=== PATIENT | female | born 1985 | race Caucasian/White ===

== ENCOUNTER 2016-05-27 13:16 | Emergency (ER) | payer MEDICAID, OTHER ==
[~2016-05-27 13:16] MED LIST: PREN1PAK2 PO
--- NOTE | 2016-05-27 14:03 | PD ---
HPI Chief Complaint Bleeding with intercourse Date Seen: May 27, 2016 Time Seen: 13:50 Travel History International Travel<30 Days: No Contact w/Intl Traveler<30Days: No Known Affected Area: No History of Present Illness HPI 32-year-old 4 para 1 AB 2 with an EDC of September 25 who presents today complaining of vaginal bleeding. The patient states that she had intercourse and noted bright red vaginal bleeding less than a period but more than spotting. She denies any abdominal pain or trauma. She has had minimal cramping. No leakage of fluid. Good movement. No vaginal irritation or discharge. Para: 1 : 4 Miscarriage: 2 : 0 History Past Medical History Medical History: Denies Significant Hx Past Surgical History Narrative Surgical 1, D&C 2 Family History Family History: Negative Social History Alcohol Use: No Tobacco Use: Yes (stopped with ) Substance Abuse: No Allergies-Medications (Allergen,Severity, Reaction): Coded Allergies: No Known Allergies (Verified , 05/09/16) Home Meds Active Scripts W/O Vit A W/ Fe Carbo Pack (Citranatal Dha Pack)27-1 & 250 Mg Pack1 Ea PO DAILY #6 BLISTER Ref 11 30 day supply. Prov:Bea Light 03/08/16 W/O Vit A W/ Fe Carbo (Prenate Mini 18-0.6-0.4-350 mg)1 Cap Cap Sample #2 Prov:Bea Light 03/08/16 Review of Systems Except as stated in HPI: all other systems reviewed are Neg Physical Exam Narrative GENERAL: Well-nourished, well-developed patient. SKIN: Warm and dry. HEAD: Normocephalic and atraumatic. EYES: No scleral icterus. No injection or drainage. ENT: No nasal drainage noted. Mucous membranes pink. Airway patent. NECK: Supple, trachea midline. No JVD. ABDOMEN/GI: Abdomen soft, non-tender, bowel sounds present, no rebound, no guarding Gravid to [26-] weeks size Fundal Height: [-] GENITOURINARY: External Genitalia: intact and normal in appearance BUS glands: [Negative-] Cervix: [Small bleeding spot identified on the squamocolumnar junction-] Dilatation: [-Closed] Effacement: [-Long] Station: [High-] Presentation: [-] Membranes: [intact] Uterine Contractions: [None-] FHT's: Category: [-1] Baseline: [-] Reactive: [Yes-] Variability: [-] Decels: [-] EXTREMITIES: No cyanosis or edema. BACK: Nontender without obvious deformity. No CVA tenderness. NEUROLOGICAL: Awake and alert. Motor and sensory grossly within normal limits. Five out of 5 muscle strength in all muscle groups. Normal speech. MDM Medical Record Reviewed: Yes Narrative Course / MDM Assessment: 26 week intrauterine with postcoital bleeding related to a small cervical capillary site, she is Rh+ Plan: Pelvic rest Follow-up in clinic as scheduled. Diagnosis Diagnosis: Primary Impression: 26 weeks gestation of Additional Impression: Antepartum bleeding, second trimester Disposition: 01 DISCHARGE HOME Condition: Good Tomasz Bloom MD May 27, 2016 14:03
[2016-07-06] MEDS ORDERED: ZANT150T2 PO (11:09)
[2016-07-25] MEDS ORDERED: PREN1CHW7 PO (11:36)
[2016-08-02] MEDS ORDERED: PROC2.5C RECTAL (16:26)
[2016-08-09] MEDS ORDERED: ZITHTAB PO (08:58)
== END 2016-05-27 14:21 | disposition home or self-care (01) ==
LOC: HOBED 13:16
DX: O46.92 Antepartum hemorrhage, unspecified, second trimester (principal); Z3A.26 26 weeks gestation of pregnancy
CPT/HCPCS: 99283

== ENCOUNTER 2016-08-05 16:24 | Emergency (ER) | payer OTHER ==
[~2016-08-05 16:24] MED LIST changes: +PREN1CHW7 PO; +PROC2.5C RECTAL; +ZANT150T2 PO
[2016-08-05 17:08] LABS: BLOOD, URINE TRACE (NEG); COMMENT (UR) CULT NOT INDICATED; CULTURE IF INDICATED CULT NOT INDICATED; GLUCOSE,URINE NEG (NEG); KETONE, URINE 150 mg/dL (NEG); MUCUS URINE FEW /lpf (OCC); NITRITE,URINE NEG (NEG); SQUAMOUS EPITHELIAL CELL URINE <1 /hpf (0-5); URINE COLOR YELLOW (YELLW/STRAW)
--- NOTE | 2016-08-05 17:46 | PD ---
HPI Chief Complaint Lower abdominal pain, possible contractions Date Seen: Aug 05, 2016 Time Seen: 16:20 Travel History International Travel<30 Days: No Contact w/Intl Traveler<30Days: No Known Affected Area: No History of Present Illness HPI 30-year-old 4 para 1 AB 1 EAB 1 at 33 weeks gestation who presented with a complaint of lower abdominal intermittent pain and pressure that has been increasing. She denies any bleeding, loss of fluid, vaginal discharge or decreased movement. Para: 1 : 4 Miscarriage: 1 : 1 History Past Medical History Medical History: Denies Significant Hx Obstetric History Obstetric History 1, EAB 1, SAB 1 Past Surgical History Narrative Surgical , D&C 2 Family History Family History: Negative Social History Alcohol Use: No Tobacco Use: Yes (reports none for several months) Substance Abuse: Yes (occasional marijuana for nausea) Allergies-Medications (Allergen,Severity, Reaction): Coded Allergies: No Known Allergies (Verified , 08/05/16) Home Meds Active Scripts Hydrocortisone Rectal (Proctosol Hc)2.5% Cream1 Applic RECTAL BID PRN (PAIN/ INFLAMMATION) #1 TUBE Ref 3 Prov:Bea Light 08/02/16 Vit W/ Ferric Phospha (Vitafol Gummies 3.33-0.333-34.8 mg)1 Chw Chw1 Chew PO DAILY #30 BOTTLE Ref 11 Prov:Talisha Crouch CNM [facility] 07/25/16 Ranitidine (Zantac)150 Mg [id number] Mg PO BID #60 TAB Ref 10 Prov:Bea Light 07/06/16 W/O Vit A W/ Fe Carbo Pack (Citranatal Dha Pack)27-1 & 250 Mg Pack1 Ea PO DAILY #6 BLISTER Ref 11 30 day supply. Prov:Bea Light 03/08/16 W/O Vit A W/ Fe Carbo (Prenate Mini 18-0.6-0.4-350 mg)1 Cap Cap Sample #2 Prov:Bea Light 03/08/16 Review of Systems Except as stated in HPI: all other systems reviewed are Neg Physical Exam Narrative GENERAL: Well-nourished, well-developed patient. SKIN: Warm and dry. HEAD: Normocephalic and atraumatic. EYES: No scleral icterus. No injection or drainage. ENT: No nasal drainage noted. Mucous membranes pink. Airway patent. NECK: Supple, trachea midline. No JVD. CARDIOVASCULAR: Regular rate and rhythm without murmurs, gallops, or rubs. RESPIRATORY: Breath sounds equal bilaterally. No accessory muscle use. ABDOMEN/GI: Abdomen soft, non-tender, bowel sounds present, no rebound, no guarding Gravid to [-] weeks size Fundal Height: [-] GENITOURINARY: External Genitalia: intact and normal in appearance BUS glands: [-] Cervix: [-] Dilatation: [Closed-] Effacement: [80-] Station: [-2-] Presentation: [Vertex-] Membranes: [intact] Uterine Contractions: [-] FHT's: Category: [1-] Baseline: [150-] Reactive: [Yes-] Variability: [-] Decels: [-] EXTREMITIES: No cyanosis or edema. BACK: Nontender without obvious deformity. No CVA tenderness. NEUROLOGICAL: Awake and alert. Motor and sensory grossly within normal limits. Five out of 5 muscle strength in all muscle groups. Normal speech. Data Data Orders Vital Signs (Adult) .ON ADMISSION (08/05/16 16:40) ^ Labor Status (08/05/16 16:40) Urinalysis - C+S If Indicated (08/05/16 16:40) Labs Laboratory Tests Test 08/05/16 16:35 Urine Color YELLOW Urine Turbidity CLEAR Urine pH 7.0 Urine Specific [place] 1.033 Urine Protein 100 Urine Glucose (UA) NEG Urine Ketones 150 Urine Occult Blood TRACE Urine Nitrite NEG Urine Bilirubin NEG Urine Urobilinogen 2.0 Urine Leukocyte Esterase NEG Urine RBC 14 Urine WBC 2 Urine Squamous Epithelial <1 Cells Urine Mucus FEW Microscopic Urinalysis Comment CULT NOT INDICATED MDM Medical Record Reviewed: Yes Narrative Course / MDM Assessment: 33 week intrauterine with Doc Lezama Plan: Discharge home Diagnosis Diagnosis: Primary Impression: 33 weeks gestation of Additional Impression: Kenyon Lezama' contraction Disposition: 01 DISCHARGE HOME Condition: Good Patient Instructions: General Instructions Departure Forms: Tests/Procedures Tomasz Bloom MD Aug 05, 2016 17:46
[2016-08-05] MEDS ORDERED: ACETAMINOPHEN 325 MG TAB PO ONE (18:00)
[2016-08-09] MEDS ORDERED: ZITHTAB PO (08:58)
== END 2016-08-05 18:05 | disposition home or self-care (01) ==
LOC: HOBED 16:24
DX: O47.03 False labor before 37 completed weeks of gestation, third trimester (principal); Z3A.33 33 weeks gestation of pregnancy
CPT/HCPCS: 59025; 81001

== ENCOUNTER 2016-08-25 20:33 | Emergency (ER) | payer OTHER ==
[~2016-08-25 20:33] MED LIST changes: -PREN1PAK2 PO; +ZITHTAB PO
--- NOTE | 2016-08-25 21:12 | PD ---
HPI Chief Complaint Abdominal pain Date Seen: August 25, 2016 Travel History International Travel<30 Days: No Contact w/Intl Traveler<30Days: No Known Affected Area: No History of Present Illness HPI This patient is 30-year-old white female G for P1 previous now at 35-1 /2 weeks who presents complaining of abdominal pain no bleeding or leakage, she' ll heart rate tracing is reactive and she is no regular contractions some uterine irritability noted. Patient is brought in by the police were on their way to take her to senior living but stopped here for us to monitor baby, [facility] but I believe she's been fired by them because she had an altercation with other people Para: 1 : 4 History Obstetric History Obstetric History 1 , she had 2 D&Cs for miscarriages Past Surgical History Narrative Surgical 1 , 2 D&Cs Social History Alcohol Use: Yes Tobacco Use: Yes Substance Abuse: Yes Allergies-Medications (Allergen,Severity, Reaction): Coded Allergies: No Known Allergies (Verified , 08/09/16) Home Meds Active Scripts Azithromycin (Zithromax Z-Min)250 Mg [id number] Mg PO DIRECTED #1 DSPK Ref 0 500 MG (2 tabs) day 1, then 1 tab days 2-5. Prov:Bea Light 08/09/16 Hydrocortisone Rectal (Proctosol Hc)2.5% Cream1 Applic RECTAL BID PRN (PAIN/ INFLAMMATION) #1 TUBE Ref 3 Prov:Bea Light 08/02/16 Vit W/ Ferric Phospha (Vitafol Gummies 3.33-0.333-34.8 mg)1 Chw Chw1 Chew PO DAILY #30 BOTTLE Ref 11 Prov:Talisha Crouch CNMP 07/25/16 Ranitidine (Zantac)150 Mg [id number] Mg PO BID #60 TAB Ref 10 Prov:Bea Light 07/06/16 Review of Systems General / Constitutional: No: Fever, Weight Gain, Chills, Other Eyes: No: Diploplia, Blurred Vision, Visual changes, Pain, Photophobia HENT: No: Headaches, Vertigo, Lightheadedness Cardiovascular: No: Irregular Rhythm, Chest Pain or Discomfort, Palpitations, Tachycardia, Syncope, Varicosities, Edema, Cyanosis Respiratory: No: Cough, Short of Breath, Other Gastrointestinal: Abdominal Pain, No: Nausea, Vomiting, Diarrhea Genitourinary: No: Decreased Urinary Output, Oliguria Musculoskeletal: No: Limited ROM, Weakness, Cramping, Edema, Pain Skin: No Rash, No Itching, No Dryness, No Lumps, No Change in Pigmentation, No Change in Nails, No Alopecia, No Lesions Neurologic: No: Weakness, Dizziness, Syncope, Focal Abnormalities, Coordination Problem, Headache, Slurred Speech, Seizures Psychiatric: No: Depression, Suicidal Ideations, Homicidal Ideation Endocrine: No: Heat Intolerance, Cold Intolerance, Polydipsia, Polyuria, Other Physical Exam Narrative GENERAL: Well-nourished, well-developed patient. SKIN: Warm and dry. HEAD: Normocephalic and atraumatic. EYES: No scleral icterus. No injection or drainage. ENT: No nasal drainage noted. Mucous membranes pink. Airway patent. NECK: Supple, trachea midline. No JVD. CARDIOVASCULAR: Regular rate and rhythm without murmurs, gallops, or rubs. RESPIRATORY: Breath sounds equal bilaterally. No accessory muscle use. BREASTS: Bilateral exam showed no masses , no retractions, no nipple discharge. ABDOMEN/GI: Abdomen soft, non-tender, bowel sounds present, no rebound, no guarding Gravid to [38-] weeks size Fundal Height: [36-] GENITOURINARY: External Genitalia: intact and normal in appearance BUS glands: [-] Cervix: [-1] Dilatation: [1-] Effacement: [-60] Station: [-3 posterior] Presentation: [-vtx] Membranes: [intact ] Uterine Contractions: [-Regular contractions positive uterine irritability] FHT's: Category: [-1] Baseline: [133-] Reactive: [yes-] Variability: [mod-] Decels: [-none] EXTREMITIES: No cyanosis or edema. BACK: Nontender without obvious deformity. No CVA tenderness. NEUROLOGICAL: Awake and alert. Motor and sensory grossly within normal limits. Five out of 5 muscle strength in all muscle groups. Normal speech. MDM Interpretation(s) 30-year-old white female previous now 35-1/2 weeks presents with abdominal pain. She is on her way to the senior living brought in by the police for evaluation. [facility] by [facility], heart rate tracing is reactive she has no regular contractions and some uterine irritability. Cervix is 1 cm 60% -3 very posterior and vertex Plan Plan to give the patient a shot of fentanyl for pain lower to be taken away by the police to the senior living return for any increasing problems Diagnosis Diagnosis: Primary Impression: False labor before 37 completed weeks of gestation Disposition: [address] [employer] Condition: Stable Kirt Padilla II, MD August 25, 2016 21:12
== END 2016-08-25 21:44 ==
LOC: HOBED 20:33
DX: O47.03 False labor before 37 completed weeks of gestation, third trimester (principal); R10.9 Unspecified abdominal pain; F19.90 Other psychoactive substance use, unspecified, uncomplicated; Z72.0 Tobacco use; Z3A.35 35 weeks gestation of pregnancy
CPT/HCPCS: 59025; 96374; 99284; J3010